=== PATIENT | male | born 1970 | race Caucasian/White ===

== ENCOUNTER 2016-09-01 19:51 | Emergency (ER) | payer OTHER ==
[~2016-09-01] VITALS: Ht 188 cm; Wt 100.3 kg
[~2016-09-01 19:51] MED LIST: ALLERGY MED; AMOX TR-K CLV1 EAC4 PO; BUTALB-ACETAMI1 EAC2 PO; BUTALB-APAP-CA1 EACH PO; CIPRO500 MG PO; DILAUDID2 MG PO; DONNATAL1 TABLET PO; ENDOCET 5-3251 EACH PO; EXCEDRIN MIGRA1 EACH PO; FLAGYL500 MG PO; FLEXERIL10 MG PO; FLONASE16 G1 BOTH NARES; HYDROCODON-ACE1 EAC7 PO; LORTAB 5-325 M1 EACH PO; MOBIC15 MG PO; MOTRIN800 MG PO; MUCUS RELIEF600 M1 PO; NAPROSYN500 MG PO; NASONEX17 GM BOTH NARES; NORCO 5/3251 TABLET PO; PERCOCET 5/31 TABLET PO; PREDNISONE10 MG PO; PROMETHAZINE HC25 M1 PO; STOOL SOFTENER100 MG PO; ULTRAM50 MG PO; VOLTAREN75 MG PO; ZYRTEC10 M3 PO; [UNRECOGNIZED DRUG - OTHER] PO
[2016-09-01] MEDS ORDERED: MEDROL DOSEPAK4 MG PO (20:51)
[2016-09-01] MEDS ORDERED: FLEXERIL10 MG PO (20:51)
[2016-09-01 21:07] VITALS: BP 148/86
== END 2016-09-01 21:08 | disposition home or self-care (01) ==
LOC: EME 19:51
DX: M54.41 Lumbago with sciatica, right side (principal); J32.9 Chronic sinusitis, unspecified
CPT/HCPCS: 99281; 99283; J3010; J7512

== ENCOUNTER 2016-09-25 18:36 | Emergency (ER) | payer OTHER ==
[~2016-09-25] VITALS: Ht 182.9 cm; Wt 98.3 kg
[~2016-09-25 18:36] MED LIST changes: +MEDROL DOSEPAK4 MG PO
[2016-09-25 19:20] LABS: HEMATOCRIT 39.6 % (38.0-50.0); MCH 30.7 PG (29.0-34.0); MCHC 34.1 G/DL (30.0-36.0); MEAN PLAT.VOLUME 8.7 uM^3 (9.0-12.4); PLATELET COUNT 290 K/uL (156-360); RBC DIS.WIDTH-CV 12.1 % (11.8-14.6); RBC DIS.WIDTH-SD 39.7 % (39-53)
[2016-09-25 19:29] LABS: CHLORIDE 107 mEq/L (99-109); POTASSIUM 3.7 mEq/L (3.7-5.4); SODIUM 141 mEq/L (136-147)
[2016-09-25 19:30] LABS: GLUCOSE 138 mg/dL (70-99)
[2016-09-25 19:32] LABS: ANION GAP 12 MEQ/L (2-14)
[2016-09-25 19:34] LABS: GFR ESTIMATE (CALCULATED) > 59 mL/min/
[2016-09-25 19:35] LABS: UREA NITROGEN (BUN) 12 mg/dL (9-23)
[2016-09-25 19:44] LABS: TROP-I INTERPRETATION NEGATIVE; TROPONIN-I < 0.01 ng/mL (0.0-0.30)
[2016-09-25 19:52] LABS: TOTAL BILIRUBIN 0.3 mg/dL (0.0-1.0)
[2016-09-25 19:53] LABS: ALKALINE PHOSPHATASE 85 IU/L (3-129)
[2016-09-25 19:56] LABS: DIRECT BILIRUBIN 0.1 mg/dL (0.0-0.3)
[2016-09-25 21:36] LABS: C-REACTIVE PROTEIN 12.3 MG/L (0-10)
[2016-09-25 23:03] LABS: INTERNAL CONTROL VALID? YES; MONOSPOT (MONONUCLEOSIS SEROL) NEGATIVE
[2016-09-25] MEDS ORDERED: VENTOLIN HFA18 GM IH (23:18)
[2016-09-25 23:34] VITALS: BP 123/87
[2016-09-26 13:32] LABS: LYME DISEASE SEROLOGY SCREEN NEGATIVE (NEGATIVE)
== END 2016-09-26 | disposition home or self-care (01) ==
LOC: EME 18:36 → EXP 18:36
PROVIDERS: Physician Assistant
DX: M54.2 Cervicalgia (principal); R06.02 Shortness of breath; R53.83 Other fatigue; R22.1 Localized swelling, mass and lump, neck; R07.9 Chest pain, unspecified; Z85.828 Personal history of other malignant neoplasm of skin
CPT/HCPCS: 70491; 71020; 71275; 80048; 80076; 84443; 84484; 85027; 85651; 86140; 86308; 86618; 93005; 99281; 99285; J1100; J2270; J2405; J3010; J7030

== ENCOUNTER 2017-05-18 13:25 | Emergency (ER) | payer OTHER ==
[~2017-05-18] VITALS: Ht 188 cm; Wt 101.1 kg
[~2017-05-18 13:25] MED LIST changes: +VENTOLIN HFA18 GM IH
[2017-05-18] MEDS ORDERED: OCEAN NASAL 0.645 ML BOTH NARES (14:42)
[2017-05-18] MEDS ORDERED: NAPROSYN500 MG PO (14:42)
[2017-05-18 14:56] VITALS: BP 130/102
== END 2017-05-18 14:57 | disposition home or self-care (01) ==
LOC: EME 13:25
DX: J32.0 Chronic maxillary sinusitis (principal); Z88.5 Allergy status to narcotic agent; Z88.1 Allergy status to other antibiotic agents
CPT/HCPCS: 70486; 99281; 99284

== ENCOUNTER 2017-06-30 11:39 | Emergency (ER) | payer OTHER ==
[~2017-06-30] VITALS: Ht 188 cm; Wt 101.4 kg
[~2017-06-30 11:39] MED LIST changes: +OCEAN NASAL 0.645 ML BOTH NARES
[2017-06-30] MEDS ORDERED: MOTRIN600 MG PO (13:08)
[2017-06-30] MEDS ORDERED: PERCOCET 5/31 TABLET PO (13:08)
[2017-06-30 13:28] VITALS: BP 135/88
== END 2017-06-30 13:28 | disposition home or self-care (01) ==
LOC: EME 11:39
DX: S32.2XXA Fracture of coccyx, initial encounter for closed fracture (principal); W10.9XXA Fall (on) (from) unspecified stairs and steps, initial encounter; Z88.5 Allergy status to narcotic agent; Z88.1 Allergy status to other antibiotic agents
CPT/HCPCS: 72220; 99281; 99284